=== PATIENT | male | born 1950 | race Caucasian/White ===

== ENCOUNTER 2017-08-23 12:49 | Inpatient (IN) | payer BC ==
[~2017-08-23] VITALS: Ht 180.3 cm; Wt 98.0 kg
[2017-08-23 13:00] VITALS: BP_SYST 108
[2017-08-23] MEDS ORDERED: CARV6.2554 PO (13:22)
[2017-08-23] MEDS ORDERED: ALLO100T PO (13:22)
[2017-08-23] MEDS ORDERED: NACL 0.9% 1,000 ML IV ONE (14:15)
[2017-08-23 14:43] LABS: BASOPHILS % (AUTO) 0.4 % (0.0-2.0); EOSINOPHILS # (AUTO) 0.1 K/uL (0.0-0.4); EOSINOPHILS % (AUTO) 0.5 % (0.0-4.0); HEMATOCRIT 28.2 % (36-54); HEMOGLOBIN 9.6 g/dL (14.0-18.0); LYMPHOCYTES # (AUTO) 2.2 K/uL (1.0-5.5); MEAN CORPUSCULAR HEMOGLOBIN 34 pg (27-31); MEAN CORPUSCULAR HGB CONC 34 % (32-36); MEAN CORPUSCULAR VOLUME 98 fL (79.0-98.0); MONOCYTES # (AUTO) 1.1 K/uL (0.0-1.0); MONOCYTES % (AUTO) 10.5 % (1.7-9.3); NEUTROPHILS % (AUTO) 67.6 % (40.0-70.0); PLATELET COUNT (AUTO) 250 K/uL (130-430); RED BLOOD CELL COUNT(AUTO) 2.87 MIL/uL (4.2-6.2); RED CELL DISTRIBUTION WIDTH 12.3 % (9.0-15.0); WHITE BLOOD COUNT (AUTO) 10.4 K/uL (4.8-10.8)
[2017-08-23] MEDS ORDERED: NAPR-688 PO (14:43)
[2017-08-23] MEDS ORDERED: TAMS-11 PO (14:43)
[2017-08-23 15:03] LABS: CALCIUM 8.4 mg/dL (8.4-11.0); CREATININE 0.79 mg/dL (0.55-1.30); POTASSIUM 3.6 mmol/L (3.5-5.1)
[2017-08-23 15:04] LABS: PROTHROMBIN TIME 9.9 SECS (9.5-12.5)
[2017-08-23 15:08] LABS: ALBUMIN 3.1 g/dL (3.4-4.8); TOTAL BILIRUBIN 0.7 mg/dL (0.0-1.0)
[2017-08-23 16:26] VITALS: BP_SYST 142
[2017-08-23] MEDS ORDERED: PANTOPRAZOLE SODIUM 40 MG/VIAL (PROTONIX) IVP ONE (16:30)
[2017-08-23] MEDS ORDERED: BISACODYL 5 MG TABLET.DR (DULCOLAX) PO ONE (17:00)
[2017-08-23] MEDS ORDERED: GOLYTELY / COLYTE SOLUTION 4 LITERS PO ONE (18:00)
[2017-08-23] MEDS ORDERED: MAGNESIUM SULFATE 50 ML IV PRN (18:30)
[2017-08-23] MEDS ORDERED: ZOLPIDEM TARTRATE 5 MG TABLET PO PRN (18:30)
[2017-08-23] MEDS ORDERED: ACETAMINOPHEN 325 MG TABLET PO PRN (18:30)
[2017-08-23] MEDS ORDERED: LORazepam 2 MG/ML VIAL IVP PRN (18:30)
[2017-08-23] MEDS ORDERED: MUPIROCIN 2% TOPICAL OINTMENT 22 GM NS PRN (18:30)
[2017-08-23] MEDS ORDERED: ONDANSETRON HCL 4 MG/2 ML VIAL IVP PRN (18:30)
[2017-08-23] MEDS ORDERED: MORPHINE 2 MG/ML INJ. SYRINGE IVP PRN ×2 (18:30)
[2017-08-23] MEDS ORDERED: DOCUSATE SODIUM 100 MG CAPSULE PO PRN (18:30)
[2017-08-23] MEDS: D5NS 1,000 ML IV SCH (19:00)
[2017-08-23 19:40] VITALS: BP_SYST 108
[2017-08-24] VITALS: BP_SYST 114
[2017-08-24] MEDS ORDERED: MEPERIDINE HCL/PF 100 MG/ML AMP ONE (07:20)
[2017-08-24] MEDS ORDERED: SIMETHICONE 40 MG/0.6 ML ML ONE (07:20)
[2017-08-24 07:27] LABS: BASOPHILS % (AUTO) 0.1 % (0.0-2.0); EOSINOPHILS # (AUTO) 0.1 K/uL (0.0-0.4); EOSINOPHILS % (AUTO) 0.6 % (0.0-4.0); HEMATOCRIT 24.9 % (36-54); HEMOGLOBIN 8.4 g/dL (14.0-18.0); LYMPHOCYTES # (AUTO) 1.5 K/uL (1.0-5.5); LYMPHOCYTES % (AUTO) 16.1 % (20.5-51.5); MEAN CORPUSCULAR HEMOGLOBIN 33 pg (27-31); MEAN CORPUSCULAR HGB CONC 34 % (32-36); MEAN CORPUSCULAR VOLUME 99 fL (79.0-98.0); MONOCYTES % (AUTO) 10.9 % (1.7-9.3); NEUTROPHILS # (AUTO) 6.4 K/uL (1.8-7.7); NEUTROPHILS % (AUTO) 72.3 % (40.0-70.0); PLATELET COUNT (AUTO) 228 K/uL (130-430); RED BLOOD CELL COUNT(AUTO) 2.52 MIL/uL (4.2-6.2); RED CELL DISTRIBUTION WIDTH 12.3 % (9.0-15.0)
[2017-08-24 07:48] LABS: PROTHROMBIN TIME 9.9 SECS (9.5-12.5)
[2017-08-24 08:04] LABS: CALCIUM 7.9 mg/dL (8.4-11.0); CREATININE 0.87 mg/dL (0.55-1.30); POTASSIUM 3.3 mmol/L (3.5-5.1)
[2017-08-24 08:21] VITALS: BP_SYST 132
[2017-08-24] MEDS: MIDAZOLAM HCL 5 MG/5 ML VIAL ONE ×4 (08:41→08:57)
[2017-08-24] MEDS: metroNIDAZOLE 500 mg/NS 100 ML IV SCH ×4 (09:30→21:08)
[2017-08-24] MEDS: ALLOPURINOL 100 MG TABLET (ZYLOPRIM) PO SCH (09:46)
[2017-08-24] MEDS: CARVEDILOL 6.25 MG TABLET (COREG) PO SCH ×2 (09:46→20:26)
[2017-08-24] MEDS: PANTOPRAZOLE SODIUM 40 MG/VIAL (PROTONIX) IVP SCH (09:46)
[2017-08-24] MEDS: POTASSIUM CHLORIDE 20 MEQ TAB.PRT.SR PO PRN (09:49)
[2017-08-24] MEDS: D5NS 1,000 ML IV SCH ×2 (09:52→17:23)
[2017-08-24 12:46] VITALS: BP_SYST 102; BP_SYST 113
[2017-08-24] MEDS: LEVOFLOXACIN 500 MG/D5W 100 ML IV SCH (14:22)
[2017-08-24 16:26] VITALS: BP_SYST 106; BP_SYST 114
[2017-08-24 20:00] VITALS: BP_SYST 91
[2017-08-24] MEDS: TAMSULOSIN HCL 0.4 MG CAP PO SCH (20:51)
[2017-08-25 01:15] VITALS: BP_SYST 100
[2017-08-25] MEDS: metroNIDAZOLE 500 mg/NS 100 ML IV SCH ×3 (05:18→21:17)
[2017-08-25 07:19] LABS: BASOPHILS % (AUTO) 0.4 % (0.0-2.0); EOSINOPHILS # (AUTO) 0.2 K/uL (0.0-0.4); EOSINOPHILS % (AUTO) 2.8 % (0.0-4.0); HEMATOCRIT 23.1 % (36-54); HEMOGLOBIN 7.9 g/dL (14.0-18.0); LYMPHOCYTES # (AUTO) 1.3 K/uL (1.0-5.5); LYMPHOCYTES % (AUTO) 15.1 % (20.5-51.5); MEAN CORPUSCULAR HEMOGLOBIN 34 pg (27-31); MEAN CORPUSCULAR HGB CONC 34 % (32-36); MEAN CORPUSCULAR VOLUME 100 fL (79.0-98.0); MONOCYTES # (AUTO) 0.7 K/uL (0.0-1.0); MONOCYTES % (AUTO) 8.4 % (1.7-9.3); NEUTROPHILS # (AUTO) 6.1 K/uL (1.8-7.7); NEUTROPHILS % (AUTO) 73.3 % (40.0-70.0); PLATELET COUNT (AUTO) 180 K/uL (130-430); RED BLOOD CELL COUNT(AUTO) 2.31 MIL/uL (4.2-6.2); RED CELL DISTRIBUTION WIDTH 12.4 % (9.0-15.0); WHITE BLOOD COUNT (AUTO) 8.3 K/uL (4.8-10.8)
[2017-08-25 07:26] LABS: CALCIUM 7.7 mg/dL (8.4-11.0); CREATININE 0.82 mg/dL (0.55-1.30); POTASSIUM 3.9 mmol/L (3.5-5.1)
[2017-08-25 07:40] VITALS: BP_SYST 117
[2017-08-25] MEDS: LEVOFLOXACIN 500 MG/D5W 100 ML IV SCH (09:18)
[2017-08-25] MEDS: PANTOPRAZOLE SODIUM 40 MG/VIAL (PROTONIX) IVP SCH (09:18)
[2017-08-25] MEDS: ALLOPURINOL 100 MG TABLET (ZYLOPRIM) PO SCH (09:19)
[2017-08-25] MEDS: CARVEDILOL 6.25 MG TABLET (COREG) PO SCH ×2 (09:20→21:16)
[2017-08-25 11:35] VITALS: BP_SYST 104
[2017-08-25] MEDS: FERROUS FUMARATE/DOCUSATE NA 1 TABLET.SA PO SCH (13:51)
[2017-08-25 15:28] VITALS: BP_SYST 112
[2017-08-25 15:30] VITALS: BP_SYST 106
[2017-08-25] MEDS: D5NS 1,000 ML IV SCH (18:32)
[2017-08-25 20:00] VITALS: BP_SYST 113
[2017-08-25] MEDS: TAMSULOSIN HCL 0.4 MG CAP PO SCH (21:16)
[2017-08-26] MEDS: D5NS 1,000 ML IV SCH (05:23)
[2017-08-26] MEDS: metroNIDAZOLE 500 mg/NS 100 ML IV SCH (05:23)
[2017-08-26 07:00] LABS: EOSINOPHILS # (AUTO) 0.4 K/uL (0.0-0.4); MEAN CORPUSCULAR HEMOGLOBIN 34 pg (27-31); MEAN CORPUSCULAR HGB CONC 34 % (32-36); MEAN CORPUSCULAR VOLUME 101 fL (79.0-98.0)
[2017-08-26 07:11] LABS: BASOPHILS % (AUTO) 0.3 % (0.0-2.0); EOSINOPHILS % (AUTO) 3.5 % (0.0-4.0); HEMATOCRIT 28.7 % (36-54); HEMOGLOBIN 9.7 g/dL (14.0-18.0); LYMPHOCYTES # (AUTO) 1.4 K/uL (1.0-5.5); LYMPHOCYTES % (AUTO) 13.2 % (20.5-51.5); MONOCYTES # (AUTO) 0.7 K/uL (0.0-1.0); NEUTROPHILS # (AUTO) 7.8 K/uL (1.8-7.7); PLATELET COUNT (AUTO) 250 K/uL (130-430); RED BLOOD CELL COUNT(AUTO) 2.85 MIL/uL (4.2-6.2); RED CELL DISTRIBUTION WIDTH 12.7 % (9.0-15.0); WHITE BLOOD COUNT (AUTO) 10.3 K/uL (4.8-10.8)
[2017-08-26 07:29] LABS: CALCIUM 8.7 mg/dL (8.4-11.0); CREATININE 1.01 mg/dL (0.55-1.30); POTASSIUM 3.2 mmol/L (3.5-5.1)
[2017-08-26 08:14] VITALS: BP_SYST 131
[2017-08-26] MEDS ORDERED: PRO40 PO (09:14)
[2017-08-26] MEDS ORDERED: METR500T PO (09:14)
[2017-08-26] MEDS ORDERED: LEVO500T20 PO (09:14)
[2017-08-26] MEDS: POTASSIUM CHLORIDE 20 MEQ TAB.PRT.SR PO PRN (09:41)
[2017-08-26] MEDS: CARVEDILOL 6.25 MG TABLET (COREG) PO SCH (09:41)
[2017-08-26] MEDS: FERROUS FUMARATE/DOCUSATE NA 1 TABLET.SA PO SCH (09:42)
[2017-08-26] MEDS: ALLOPURINOL 100 MG TABLET (ZYLOPRIM) PO SCH (09:42)
[2017-08-26] MEDS: LEVOFLOXACIN 500 MG/D5W 100 ML IV SCH (09:42)
[2017-08-26] MEDS: PANTOPRAZOLE SODIUM 40 MG/VIAL (PROTONIX) IVP SCH (09:42)
[2017-08-26 10:06] VITALS: BP_SYST 131
[2017-08-26 12:00] VITALS: BP_SYST 131
== END 2017-08-26 12:50 | disposition home or self-care (01) | DRG 378 ==
LOC: SED 12:49 → SMU 16:03
PROVIDERS: ADMIT General Practice; ATTEND General Practice
PROC: 0DBK8ZX Excision of Ascending Colon, Via Natural or Artificial Opening Endoscopic, Diagnostic (ICD-10-PCS; 2017-08-24)
PROC: 0DB98ZX Excision of Duodenum, Via Natural or Artificial Opening Endoscopic, Diagnostic (ICD-10-PCS; principal; 2017-08-24 08:00)
PROC: 0DB68ZX Excision of Stomach, Via Natural or Artificial Opening Endoscopic, Diagnostic (ICD-10-PCS; 2017-08-24 08:00)
DX: K29.71 Gastritis, unspecified, with bleeding (principal); E44.0 Moderate protein-calorie malnutrition; I10 Essential (primary) hypertension; D64.9 Anemia, unspecified; K52.9 Noninfective gastroenteritis and colitis, unspecified; M10.9 Gout, unspecified; D50.0 Iron deficiency anemia secondary to blood loss (chronic); N40.0 Benign prostatic hyperplasia without lower urinary tract symptoms; Z80.41 Family history of malignant neoplasm of ovary; Z68.30 Body mass index [BMI] 30.0-30.9, adult
CPT/HCPCS: 36415; 71010; 80048; 80053; 82272; 83735-TC; 85025; 85610-TC; 85730-TC; 86886; 86900; 86901; 87081; 88305; 88312; 88313; 93005; 96360; 99291; C9113; J1956; J2175; J2250; J2405; J3490; J7030; J7042